=== PATIENT | female | born 1950 | race Caucasian/White ===

== ENCOUNTER → 2025-01-17 11:03 | Outpatient (REF) | payer OTHER, SELFPAY | LOC: RAD 11:03 | PROVIDERS: ATTENDING PHYSICIAN Urology; FAMILY PHYSICIAN Family Medicine | DX: N81.10 Cystocele, unspecified (principal); N81.3 Complete uterovaginal prolapse; N39.3 Stress incontinence (female) (male); N95.8 Other specified menopausal and perimenopausal disorders; R39.198 Other difficulties with micturition | CPT/HCPCS: 76770; 76856 ==

== ENCOUNTER → 2025-01-24 14:33 | Outpatient (REF) | payer OTHER, SELFPAY | LOC: HWWDC 14:33 | PROVIDERS: ATTENDING PHYSICIAN Family Medicine | DX: Z12.31 Encounter for screening mammogram for malignant neoplasm of breast (principal) | CPT/HCPCS: 77063; 77067 ==

== ENCOUNTER 2025-02-25 09:16 | Outpatient (RCR) | payer OTHER, SELFPAY | END 2025-02-25 23:59 | disposition home or self-care (01) | LOC: RPT 09:16 | PROVIDERS: ATTENDING PHYSICIAN Urology; FAMILY PHYSICIAN Family Medicine | DX: N81.10 Cystocele, unspecified (principal); N81.6 Rectocele; N39.3 Stress incontinence (female) (male); R39.198 Other difficulties with micturition; Z73.6 Limitation of activities due to disability; M62.89 Other specified disorders of muscle; N95.8 Other specified menopausal and perimenopausal disorders; M62.81 Muscle weakness (generalized) | CPT/HCPCS: 97112; 97140; 97163; 97530 ==

== ENCOUNTER 2025-03-25 07:06 | Outpatient (RCR) | payer OTHER, SELFPAY | END 2025-03-25 23:59 | disposition home or self-care (01) | LOC: RPT 07:06 | PROVIDERS: ATTENDING PHYSICIAN Urology; FAMILY PHYSICIAN Family Medicine | DX: M62.89 Other specified disorders of muscle (principal); N95.8 Other specified menopausal and perimenopausal disorders; R39.198 Other difficulties with micturition; Z73.6 Limitation of activities due to disability; M62.81 Muscle weakness (generalized); N81.10 Cystocele, unspecified; N81.6 Rectocele; N39.3 Stress incontinence (female) (male) | CPT/HCPCS: 97014; 97110; 97112; 97530 ==

== ENCOUNTER → 2025-04-12 10:12 | Outpatient (REF) | payer OTHER, SELFPAY | LOC: HWRAD 10:12 | PROVIDERS: ATTENDING PHYSICIAN Family Medicine | DX: Z78.0 Asymptomatic menopausal state (principal) | CPT/HCPCS: 77080 ==

== ENCOUNTER 2025-04-13 18:03 | Outpatient (RCR) | payer OTHER, SELFPAY | END 2025-04-13 23:59 | disposition home or self-care (01) | LOC: RPT 18:03 | PROVIDERS: ATTENDING PHYSICIAN Urology; FAMILY PHYSICIAN Family Medicine | DX: M62.89 Other specified disorders of muscle (principal); N95.8 Other specified menopausal and perimenopausal disorders; R39.198 Other difficulties with micturition; Z73.6 Limitation of activities due to disability; M62.81 Muscle weakness (generalized); N81.10 Cystocele, unspecified; N81.6 Rectocele; N39.3 Stress incontinence (female) (male) | CPT/HCPCS: 97014; 97112; 97140; 97530 ==